=== PATIENT | male | born 1965 | race Hispanic/Latino ===

== ENCOUNTER 2017-05-09 11:37 | Emergency (ER) | payer MEDICAID, SELFPAY | END 2017-05-09 12:32 | disposition left against medical advice (07) | LOC: SCSER 11:37 | DX: Z53.21 Procedure and treatment not carried out due to patient leaving prior to being seen by health care provider (principal) ==

== ENCOUNTER 2017-05-15 07:58 | Emergency (ER) | payer SELFPAY | END 2017-05-15 09:02 | disposition left against medical advice (07) | LOC: ERS 07:58 | DX: R41.82 Altered mental status, unspecified (principal); F31.9 Bipolar disorder, unspecified; F20.9 Schizophrenia, unspecified; F17.210 Nicotine dependence, cigarettes, uncomplicated | CPT/HCPCS: 99285 ==

== ENCOUNTER 2019-12-28 23:00 | Emergency (ER) | payer SELFPAY ==
[2019-12-29] MEDS ORDERED: Acetaminophen/Codeine 30-300mg Tablet ONE (00:25)
[2019-12-29] MEDS ORDERED: Vancomycin 1 GM/200 ML BAG ONE (00:25)
[2019-12-29] MEDS ORDERED: Ketorolac Tromethamine 30 MG/ML VIAL ONE (00:25)
[2019-12-29] MEDS ORDERED: Adacel (T-DAP) 0.5 ML SYRINGE ONE (00:36)
[2019-12-29 01:23] LABS: #Basophils 0.1 thou/uL (0.0-0.2); #Eosinphils 0.3 thou/uL (0.0-0.7); #Lymphocytes 2.5 thou/uL (1.20-3.40); #Monocytes 1.1 thou/uL (0.11-0.59); #Neutrophils 6.6 thou/uL (1.40-6.50); %Basophils 0.8 % (0.0-1.0); %Eosinophils 2.6 % (0.0-10.0); %Lymphocytes 23.5 % (21.0-51.0); %Monocytes 10.2 % (0.0-10.0); %Neutrophils 62.9 % (42.0-75.0); Hemoglobin 12.8 g/dL (14.0-18.0); Mean Corpuscular HGB CONC 34.9 g/dL (32.0-36.0); Mean Corpuscular Hemoglobin 31.6 pg (27.0-31.0); Mean Corpuscular Volume 90.6 fL (78.0-98.0); Platelet Count 299 thou/uL (130-400); RBC Distribution Width 11.4 % (11.5-14.5); Red Blood Cell (RBC) Count 4.04 mill/uL (4.70-6.10); White Blood Cell (WBC) Count 10.5 thou/uL (4.8-10.8)
[2019-12-29 01:45] LABS: ALT (SGPT) 21 U/L (8-55); AST (SGOT) 31 U/L (5-34); Albumin 3.6 g/dL (3.5-5.0); Alkaline Phosphatase 86 U/L (40-110); Anion Gap 11 mmol/L (10-20); BUN (Urea Nitrogen) 16 mg/dL (8.4-25.7); Bilirubin, Total 0.3 mg/dL (0.2-1.2); CK (CPK) 536 U/L (30-200); Calc. Creatinine Clearance 0 mL/min (70-130); Calcium 8.7 mg/dL (7.8-10.44); Carbon Dioxide 28 mmol/L (22-29); Chloride 101 mmol/L (98-107); Estimated GFR-MDRD 83; Globulin 3.2 g/dL (2.4-3.5); Glucose 108 mg/dL (70-105); Potassium 3.6 mmol/L (3.5-5.1); Protein, Total 6.8 g/dL (6.0-8.3); Sodium 136 mmol/L (136-145)
[2019-12-29] MEDS ORDERED: Triple Antibiotic Oint 1 GM Packet ONE (02:05)
== END 2019-12-29 02:11 | disposition home or self-care (01) ==
LOC: ERS 23:00
DX: L02.416 Cutaneous abscess of left lower limb (principal); L02.413 Cutaneous abscess of right upper limb; L03.116 Cellulitis of left lower limb; F31.9 Bipolar disorder, unspecified; F20.9 Schizophrenia, unspecified; F17.210 Nicotine dependence, cigarettes, uncomplicated
CPT/HCPCS: 36415; 80053; 82550; 83605; 85025; 90471; 90715; 96365; 96375; J1885; J3370

== ENCOUNTER 2020-04-20 03:37 | Inpatient (IN) | payer SELFPAY ==
[2020-04-20] MEDS ORDERED: Morphine 4 MG/ML VIAL ONE (04:12)
[2020-04-20] MEDS ORDERED: Cefepime 2 GM VIAL ONE (04:13)
[2020-04-20 04:54] LABS: #Basophils 0.1 thou/uL (0.0-0.2); #Eosinphils 0.1 thou/uL (0.0-0.7); #Lymphocytes 1.9 thou/uL (1.20-3.40); #Monocytes 1.7 thou/uL (0.11-0.59); #Neutrophils 13.5 thou/uL (1.40-6.50); %Basophils 0.5 % (0.0-1.0); %Eosinophils 0.4 % (0.0-10.0); %Lymphocytes 11.2 % (21.0-51.0); %Monocytes 9.8 % (0.0-10.0); %Neutrophils 78.1 % (42.0-75.0); Hemoglobin 12.1 g/dL (14.0-18.0); Mean Corpuscular HGB CONC 34.5 g/dL (32.0-36.0); Mean Corpuscular Hemoglobin 31.1 pg (27.0-31.0); Platelet Count 587 thou/uL (130-400); RBC Distribution Width 12.2 % (11.5-14.5); Red Blood Cell (RBC) Count 3.89 mill/uL (4.70-6.10); White Blood Cell (WBC) Count 17.3 thou/uL (4.8-10.8)
[2020-04-20 05:18] LABS: ALT (SGPT) 19 U/L (8-55); AST (SGOT) 15 U/L (5-34); Albumin 3.4 g/dL (3.5-5.0); Alkaline Phosphatase 131 U/L (40-110); Anion Gap 15 mmol/L (10-20); BUN (Urea Nitrogen) 13 mg/dL (8.4-25.7); Bilirubin, Total 0.8 mg/dL (0.2-1.2); Calc. Creatinine Clearance 0 mL/min (70-130); Calcium 8.8 mg/dL (7.8-10.44); Carbon Dioxide 25 mmol/L (22-29); Chloride 96 mmol/L (98-107); Estimated GFR-MDRD 76; Globulin 3.6 g/dL (2.4-3.5); Glucose 117 mg/dL (70-105); Potassium 4.2 mmol/L (3.5-5.1); Sodium 132 mmol/L (136-145)
[2020-04-20] MEDS ORDERED: Dextrose 50% Abboject 50 ML SYRINGE SLOW IVP PRN (06:30)
[2020-04-20] MEDS ORDERED: Morphine 4 MG/ML VIAL SLOW IVP PRN (06:30)
[2020-04-20] MEDS ORDERED: Dextrose 5% in Water 1,000 ML IV PRN (06:30)
[2020-04-20] MEDS ORDERED: Ondansetron PF 4 MG/2 ML Vial IVP PRN (06:30)
[2020-04-20] MEDS ORDERED: traMADol HCl 50 MG TAB PO PRN ×2 (06:35)
[2020-04-20] MEDS ORDERED: Cyclobenzaprine 10 MG TAB PO PRN (06:35)
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
[2020-04-20] MEDS ORDERED: EPHEDRINE 25 MG/5 ML SYRINGE ONE (08:42)
[2020-04-20] MEDS ORDERED: PROPOFOL 200 MG/20 ML VIAL ONE (08:42)
[2020-04-20] MEDS ORDERED: PHENYLEPHRINE-NS 100 MCG/ML 10 ML SYRINGE ONE (08:42)
[2020-04-20] MEDS ORDERED: Ondansetron PF 4 MG/2 ML Vial ONE (08:42)
[2020-04-20] MEDS ORDERED: Lidocaine 1% PF 5 ML VIAL ONE (08:42)
[2020-04-20] MEDS ORDERED: Dexamethasone 20 MG/5 ML VIAL ONE (08:42)
[2020-04-20] MEDS: Sodium Chloride 0.9% 1,000 ML IV SCH ×3 (09:18→21:09)
[2020-04-20] MEDS: Famotidine/PF 20 mg/2ml Vial SLOW IVP SCH ×2 (09:19→20:58)
[2020-04-20] MEDS: Polyethylene Glycol 3350 17 GM Packet PO SCH (09:19)
[2020-04-20] MEDS: Gabapentin 300 MG CAP PO SCH ×3 (09:20→20:58)
[2020-04-20] MEDS: Senokot S 8.6-50 MG TAB PO SCH ×3 (09:20→21:01)
[2020-04-20 10:53] VITALS: BMI 27.8
[2020-04-20] MEDS: Piperacillin/Tazobactam 3.375 GM in Sodium Chloride 0.9% 100 ML IVPB SCH ×3 (12:00→23:07)
[2020-04-20] MEDS: Acetaminophen 500 MG TAB PO SCH ×3 (12:00→23:06)
[2020-04-20] MEDS ORDERED: Fentanyl 100 MCG/2 ML VIAL ONE ×4 (12:15→15:23)
[2020-04-20] MEDS ORDERED: Midazolam HCl 2 mg/2 ml Vial ONE (12:39)
[2020-04-20 13:01] LABS: SARS-CoV-2 MS2 Positive; SARS-CoV-2 N Gene Negative; SARS-CoV-2 S Gene Negative; SARS-CoV-2 by NAA Not Detected (NotDetected); SARS-CoV-2 orf1ab Negative
[2020-04-20] MEDS ORDERED: Iopamidol 370 76% 100 ML VIAL ONE (13:23)
[2020-04-20] MEDS: Ibuprofen 600 MG TAB PO SCH ×2 (14:00→22:58)
[2020-04-20] MEDS ORDERED: Promethazine HCl 25 MG/ML VIAL SLOW IVP PRN (14:44)
[2020-04-20] MEDS ORDERED: Ondansetron HCl/PF 4 MG/2 ML Vial IVP PRN (14:44)
[2020-04-20] MEDS ORDERED: Promethazine HCl 25 MG/ML VIAL IM PRN (14:44)
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
[2020-04-20] MEDS: traMADol HCl 50 MG TAB PO SCH ×2 (16:18→20:59)
[2020-04-20] MEDS ORDERED: Vancomycin HCl 1.25 GM in Sodium Chloride 0.9% 250 ML 250 ML IVPB SCH (18:00)
--- NOTE | 2020-04-20 18:48 | ULT ---
RIGHT LOWER EXTREMITY VENOUS DOPPLER ULTRASOUND: 04/20/20 COMPARISON: None. HISTORY: Pain and swelling, assess for DVT. TECHNIQUE: Multiplanar weinberg scale sonographic imaging of the venous structures of the right lower extremity obta ined with color flow and spectral analysis/Doppler interrogation. FINDINGS: The right common femoral vein, greater saphenous vein, profunda femoral vein, femoral vein, popliteal vein, and posterior tibial vein appear patent. there is normal blood flow, augmentation and ellis dionte with no evidence for deep venous thrombosis involving the right lower extremity. Within the medial aspect of the thigh, there is a nonspecific septated fluid collection deep to the s ubcutaneous fat measuring 16.6 cm in craniocaudal dimension and approximately 4 cm in AP dimension x 3 cm in transverse dimension. IMPRESSION: No evidence for deep venous thrombosis of the right lower extremity. Septated nonspecific fluid collection within the medial right thigh measuring up to 2.8 x 4.0 x 16. 6 cm. This may represent an abscess and/or hematoma. Follow-up imaging following treatment advised. POS: NARDA
[2020-04-20] MEDS: Enoxaparin Sodium 40 MG/0.4 ML SYRINGE SC SCH (21:00)
[2020-04-21 01:27] LABS: Bilirubin Negative (Negative); Blood, Urine Negative (Negative); Clarity Clear (Clear); Glucose, Urine (Dipstick) >=1000 mg/dL (Negative); Ketone, Urine Negative (Negative); Leukocyte Negative (Negative); Nitrite Negative (Negative); Protein, Urine (Dipstick) Negative (Neg-Trace); Urobilinogen 0.2 mg/dL (Less than 2)
[2020-04-21 01:28] LABS: Specific Gravity, Urine 1.013 (1.002-1.036)
[2020-04-21 01:32] LABS: RBC/HPF None Seen HPF (0-3); Urine Culture Reflex No No
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
[2020-04-21] MEDS: traMADol HCl 50 MG TAB PO SCH ×4 (03:31→22:49)
[2020-04-21] MEDS: Sodium Chloride 0.9% 1,000 ML IV SCH (03:32)
[2020-04-21 05:11] LABS: #Lymphocytes 1.1 thou/uL (1.20-3.40); #Neutrophils 16.3 thou/uL (1.40-6.50); %Eosinophils 0.1 % (0.0-10.0); %Monocytes 5.6 % (0.0-10.0); %Neutrophils 88.4 % (42.0-75.0); Hemoglobin 11.4 g/dL (14.0-18.0); Mean Corpuscular HGB CONC 34.3 g/dL (32.0-36.0); Mean Corpuscular Hemoglobin 31.2 pg (27.0-31.0); Mean Corpuscular Volume 90.8 fL (78.0-98.0); Mean Platelet Volume 6.7 fL (7.4-10.4); Platelet Count 472 thou/uL (130-400); Red Blood Cell (RBC) Count 3.66 mill/uL (4.70-6.10); White Blood Cell (WBC) Count 18.4 thou/uL (4.8-10.8)
[2020-04-21 05:32] LABS: Anion Gap 13 mmol/L (10-20); BUN (Urea Nitrogen) 11 mg/dL (8.4-25.7); Calc. Creatinine Clearance 126 mL/min (70-130); Calcium 8.2 mg/dL (7.8-10.44); Carbon Dioxide 22 mmol/L (22-29); Chloride 104 mmol/L (98-107); Estimated GFR-MDRD Greater than 90; Glucose 168 mg/dL (70-105); Magnesium 2.1 mg/dL (1.6-2.6); Potassium 4.2 mmol/L (3.5-5.1); Sodium 135 mmol/L (136-145)
[2020-04-21 05:36] LABS: Phosphorus 1.7 mg/dL (2.3-4.7)
[2020-04-21] MEDS: Piperacillin/Tazobactam 3.375 GM in Sodium Chloride 0.9% 100 ML IVPB SCH ×4 (05:40→22:51)
[2020-04-21] MEDS: Acetaminophen 500 MG TAB PO SCH ×4 (05:40→22:48)
[2020-04-21] MEDS: Ibuprofen 600 MG TAB PO SCH ×3 (05:41→22:45)
[2020-04-21] MEDS ORDERED: Sodium Phosphate 30 MMOL in Sodium Chloride 0.9% 250 ML 250 ML IVPB SCH (06:00)
[2020-04-21] MEDS: Senokot S 8.6-50 MG TAB PO SCH ×2 (07:43→22:46)
[2020-04-21] MEDS: Gabapentin 300 MG CAP PO SCH ×3 (07:44→22:46)
[2020-04-21] MEDS: Polyethylene Glycol 3350 17 GM Packet PO SCH (07:45)
[2020-04-21] MEDS: Famotidine/PF 20 mg/2ml Vial SLOW IVP SCH (07:45)
[2020-04-21] MEDS: Saccharomyces boulardii 250 MG CAP PO SCH ×2 (09:15→22:45)
[2020-04-21] MEDS: Famotidine 20 MG TAB PO SCH ×2 (09:15→22:46)
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
[2020-04-21] MEDS: Enoxaparin Sodium 40 MG/0.4 ML SYRINGE SC SCH (22:46)
[2020-04-21] MEDS ORDERED: traMADol HCl 50 MG TAB PO SCH (23:00)
[2020-04-21 23:34] VITALS: BP 164/76; TEMP 97.7
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
== END 2020-04-22 02:05 | disposition home or self-care (01) | DRG 857 ==
LOC: ERS 03:37 → SJJU 06:30
PROVIDERS: ADMIT Surgery; ATTEND Surgery
PROC: 0JBL0ZZ Excision of Right Upper Leg Subcutaneous Tissue and Fascia, Open Approach (ICD-10-PCS; principal; 2020-04-20)
PROC: 0JB80ZZ Excision of Abdomen Subcutaneous Tissue and Fascia, Open Approach (ICD-10-PCS; 2020-04-20)
DX: T81.49XA Infection following a procedure, other surgical site, initial encounter (principal); T81.31XA Disruption of external operation (surgical) wound, not elsewhere classified, initial encounter; I96 Gangrene, not elsewhere classified; F20.9 Schizophrenia, unspecified; F17.210 Nicotine dependence, cigarettes, uncomplicated; E83.39 Other disorders of phosphorus metabolism; Y83.9 Surgical procedure, unspecified as the cause of abnormal reaction of the patient, or of later complication, without mention of misadventure at the time of the procedure; F31.9 Bipolar disorder, unspecified; Z53.29 Procedure and treatment not carried out because of patient's decision for other reasons; Z20.828 Contact with and (suspected) exposure to other viral communicable diseases
CPT/HCPCS: 36415; 71045; 74177; 80048; 80053; 81001; 83605; 83735; 84100; 85025; 85652; 86140; 87040; 87635; 88304; 93005; 96365; 96366; 96367; 96375; J0692; J1100; J1650; J2250; J2270; J2405; J2543; J2704; J3010; J3370; J3490; J7030; J7050; Q9967; S0028; U0003